=== PATIENT | female | born 1960 | race African-American/Black ===

== ENCOUNTER 2017-03-27 12:02 | Emergency (ER) | payer BC | END 2017-03-27 12:30 | disposition home or self-care (01) | LOC: NAV ERS 12:02 | DX: J06.9 Acute upper respiratory infection, unspecified (principal); E11.9 Type 2 diabetes mellitus without complications; E03.9 Hypothyroidism, unspecified; I10 Essential (primary) hypertension; Z79.84 Long term (current) use of oral hypoglycemic drugs; Z79.899 Other long term (current) drug therapy | CPT/HCPCS: 99282 ==